=== PATIENT | female | born 1955 | race Caucasian/White ===

== ENCOUNTER 2017-08-16 19:19 | Emergency (ER) | payer BC ==
[2017-08-16 19:27] VITALS: PULSE 60; TEMP 98.3; BMI 23.0
[2017-08-16] MEDS ORDERED: DOXYCYCLINE HYCLATE 100 MG CAPSULE PO ONE ×2 (19:37→19:38)
[2017-08-16] MEDS ORDERED: DIPHTH,PERTUSS(ACELL),TET 0.5 ML DISP.SYRIN IM ONE (19:37)
--- NOTE | 2017-08-16 19:46 | PDOC ---
History of Present Illness - General History Source: Patient Exam Limitations: No Limitations - History of Present Illness Initial Comments: 08/16/17 19:59 The patient is a 62 year old female, accompanied by , with no significant past medical history, who presents to the emergency room with two small puncture collier on the right forearm just distal to the elbow s/p a dog bite. The patient reports she was walking to her neighbors house when the neighbors dog bit her elbow 1x. The patient reports she was able to stop the bleeding from the dog bite by applying pressure prior to arrival at the emergency room. She reports an associated contusion on the palmar surface of the right forearm. The patient reports that she is friends with her neighbor and states the dog has all current and appropriate vaccinations. PAST MEDICAL HISTORY: no significant history PAST SURGICAL HISTORY: no significant history FAMILY HISTORY: no pertinent history SOCIAL HISTORY: Pt lives with family and is employed. MEDICATIONS: reviewed ALLERGIES: As per nursing notes ROS: General: No fevers or chills, no weakness, no weight loss HEENT: No change in vision. No sore throat,. No ear pain CardioVascular: No chest pain or shortness of breath Respiratory:No cough, or wheezing. Gastrointestinal: no nausea, vomiting, diarrhea or constipation, No rectal bleeding Genitourinary: No dysuria, hematuria, or frequency Musculoskeletal: +Pain on the right elbow. Neurologic: No headache, vertigo, dizziness or loss of consciousness Psychiatric: nor depression Skin: No rashes or easy bruising Endocrine: no increased thirst or abnormal weight change Allergic: no skin or latex allergy All other systems reviewed and normal P/E GENERAL: The patient is awake, alert, and fully oriented, in no acute distress. HEAD: Normal with no signs of trauma. EYES: Pupils equal, round and reactive to light, extraocular movements intact, sclera anicteric, conjunctiva clear. EXTREMITIES: +Two small puncture collier on the right forearm just distal to the elbow. +Associated contusion on the palmar surface of the right forearm. No active bleeding from the puncture wounds. No bony tenderness. Neurovascular distal pulses intact. Normal range of motion, no edema. NEUROLOGICAL: Normal speech, normal gait. PSYCH: Normal mood, normal affect. SKIN: Warm, Dry, normal turgor, no rashes or lesions noted. <Bogdan Pinto - Last Filed: 08/16/17 19:58> - General History Source: Patient Exam Limitations: No Limitations - History of Present Illness Initial Comments: 08/16/17 20:12 A portion of this note was documented by scribe services under my direction. I have reviewed the details of the note, within reason, and agree with the documentation. The case summary and management plan written by me. Assessment and plan: This is a 62-year-old female who comes in status post dog bite. Dog is known to her and is healthy. Dog is up-to-date on his immunizations. Dog bite form was filled out. Patient was started on doxycycline and her tetanus was updated as she was uncertain as to her tetanus status. Patient wound was cleaned and dressed. Patient will follow-up with her primary care doctor as needed. <Rema Hunter I - Last Filed: 08/16/17 20:13> - General Chief Complaint: Bite Stated Complaint: DOG BITE LEFT ARM Time Seen by Provider: 08/16/17 19:31 Past History <Bogdan Pinto - Last Filed: 08/16/17 19:58> - Past Medical History Other medical history: DENIES - Immunization History Immunization Up to Date: Yes - Suicide/Smoking/Psychosocial Hx Smoking History: Never smoked Have you smoked in the past 12 months: No Information on smoking cessation initiated: No Hx Alcohol Use: Yes (WEEKENDS) Drug/Substance Use Hx: No Substance Use Type: None <Rema Hunter I - Last Filed: 08/16/17 20:13> - Past Medical History Allergies/Adverse Reactions: Allergies Allergy/AdvReac Type Severity Reaction Status Date / Time Penicillins Allergy Verified 08/16/17 19:20 sulfur [From Sulfur-8] Allergy Verified 08/16/17 19:20 Home Medications: Ambulatory Orders Doxycycline Hyclate 100 mg PO BID 14 Days 08/16/17 *Physical Exam - Vital Signs Last Vital Signs Temp Pulse Resp BP Pulse Ox 98.3 F 60 14 157/91 100 08/16/17 19:22 08/16/17 19:22 08/16/17 19:22 08/16/17 19:50 08/16/17 19:22 <Bogdan Pinto - Last Filed: 08/16/17 19:58> - Vital Signs Last Vital Signs Temp Pulse Resp BP Pulse Ox 98.3 F 60 14 173/83 100 08/16/17 19:22 08/16/17 19:22 08/16/17 19:22 08/16/17 19:22 08/16/17 19:22 <Rema Hunter I - Last Filed: 08/16/17 20:13> ED Treatment Course - Medications Given in the ED: ED Medications Discontinued Medications Generic Name Dose Route Start Last Admin Trade Name Tracie PRN Reason Stop Dose Admin Diphtheria/Tetanus/Acell Pertussis 0.5 ml 08/16/17 19:37 08/16/17 19:41 Boostrix - IM 08/16/17 19:38 0.5 ml ONCE ONE Administration Doxycycline Hyclate 100 mg 08/16/17 19:37 08/16/17 19:49 Vibramycin - PO 08/16/17 19:38 100 mg ONCE ONE Administration <Bogdan Pinto - Last Filed: 08/16/17 19:58> *DC/Admit/Observation/Transfer - Attestations Scribe Attestion: 08/16/17 20:11 Documentation prepared by Bogdan Pinto, acting as medical physicist for Rema Hunter MD. <Bogdan Pinto - Last Filed: 08/16/17 19:58> - Discharge Dispostion Admit: No <Rema Hunter I - Last Filed: 08/16/17 20:13> Diagnosis at time of Disposition: Dog bite of extremity - Discharge Dispostion Disposition: HOME Condition at time of disposition: Stable - Prescriptions Prescriptions: Doxycycline Hyclate 100 mg PO BID 14 Days - Patient Instructions Additional Instructions: Clean the area twice a day with peroxide and reapply bacitracin and a bandaid for the next 2-3 days. No physical activity for the next 24 hours. After that if you are doing anything like weight lifting or using your muscles in that area at additional support of an Oren wrap during activity. Take doxycycline 1 tablet twice a day for 7 days to prevent infection. Return to the emergency department immediately with ANY new, persistent or worsening symptoms. Continue any medications as previously prescribed by your physician. You should follow up with your primary doctor as soon as possible regarding today's emergency department visit. . Please make sure your doctor reviews the results of your emergency evaluation. Thank you for coming to the Emergency Department today for your care. It was a pleasure to see you today. Please note that your evaluation is INCOMPLETE until you follow-up with your doctor.
[2017-08-16 19:50] VITALS: BP 157/91
== END 2017-08-16 20:02 | disposition home or self-care (01) ==
LOC: FER 19:19
PROC: 3E0234Z Introduction of Serum, Toxoid and Vaccine into Muscle, Percutaneous Approach (ICD-10-PCS; principal; 2017-08-16)
DX: S51.851A Open bite of right forearm, initial encounter (principal); W54.0XXA Bitten by dog, initial encounter; Y93.89 Activity, other specified; Y92.9 Unspecified place or not applicable
CPT/HCPCS: 90715; 99281-25

== ENCOUNTER 2024-04-08 19:12 | Emergency (ER) | payer OTHER, MEDICARE ==
[2024-04-08 19:35] VITALS: RESP 18; TEMP 98.5; BMI 23.0
[2024-04-08 20:23] LABS: BASO % 0.6 % (0-2.0); HEMATOCRIT 31.8 % (32.4-45.2); HEMOGLOBIN 11.1 GM/dL (10.7-15.3); LYMPH % 18.1 % (8-40); MCH 31.5 pg (25.7-33.7); MCHC 34.9 g/dl (32.0-36.0); MEAN CELL VOLUME 90.4 fl (80-96); MEAN PLT VOLUME 6.5 fl (7.5-11.1); MONO % 9.4 % (3.8-10.2); NEUT % 69.9 % (42.8-82.8); PLATELET COUNT 395 10^3/uL (134-434); RBC 3.52 M/mm3 (3.60-5.2); RDW 12.9 % (11.6-15.6); WHITE BLOOD COUNT 6.7 K/mm3 (4.0-10.0)
[2024-04-08 20:46] LABS: POTASSIUM 3.8 mmol/L (3.5-5.1)
[2024-04-08 20:48] LABS: CALCIUM 9.2 mg/dL (8.5-10.1)
[2024-04-08 20:49] LABS: ALBUMIN 3.7 g/dl (3.4-5.0); BLOOD UREA NITROGEN 19.6 mg/dL (7-18)
[2024-04-08 20:52] LABS: CREATININE 0.6 mg/dL (0.55-1.3)
[2024-04-08 20:54] LABS: BILIRUBIN,TOTAL 0.4 mg/dL (0.2-1); TOT PROT 6.6 g/dl (6.4-8.2)
[2024-04-08 21:34] LABS: ERYTHROCYTE SEDIMENTATION RATE 30 mm/hr (0-30)
[2024-04-08] MEDS ORDERED: CLINDAMYCIN 600MG PREMIX IVPB 600 MG/50 ML BAG IVPB ONE (22:09)
[2024-04-08] MEDS: CLINDAMYCIN 600MG PREMIX IVPB 600 MG/50 ML BAG IVPB ONE (22:13)
[2024-04-08 22:45] VITALS: BP 136/75; PULSE 74
== END 2024-04-08 23:27 | disposition home or self-care (01) ==
LOC: JER 19:12
DX: M79.89 Other specified soft tissue disorders (principal); L03.115 Cellulitis of right lower limb
CPT/HCPCS: 36415; 73560-TC-RT-FY; 80053; 85025; 85651; 86140; 93970-TC; 99285-25